=== PATIENT | female | born 1940 | race Caucasian/White ===

== ENCOUNTER 2017-10-08 07:17 | Day surgery (SDC) | payer MEDICARE, BC ==
[~2017-10-08 07:17] MED LIST: AMLO5 PO; ATOR40TA PO; Aspirin EC81 MG PO; CEFU500 PO; DILT120ERA; EZET10; LEVSOD50 PO; METO25ER; WARF5; ZOLP10 PO
[2017-11-03] MEDS ORDERED: ZOLP10 PO (11:26)
[2017-11-03] MEDS ORDERED: Jantoven4 MG PO (11:27)
[2017-11-03] MEDS ORDERED: Caltrate-600 W1 EACH PO (11:28)
== END 2017-10-08 23:12 | disposition home or self-care (01) ==
LOC: MOI MAM 07:17
PROC: 0HBT3ZX Excision of Right Breast, Percutaneous Approach, Diagnostic (ICD-10-PCS; principal; 2017-10-08)
DX: N63.0 Unspecified lump in unspecified breast (principal)
CPT/HCPCS: 19083; 77065; 88305; 88341; 88342; A4648; G0279

== ENCOUNTER 2017-11-11 10:07 | Day surgery (SDC) | payer MEDICARE, BC ==
[~2017-11-11] VITALS: Ht 162.6 cm; Wt 71.7 kg
[~2017-11-11 10:07] MED LIST changes: +Caltrate-600 W1 EACH PO; +Jantoven4 MG PO
[2017-11-11 10:58] LABS: Hematocrit 46.2 % (33.0-51.0); Hemoglobin 15.7 g/dL (11.5-16.0); Mean Corpuscular Volume 94 fL (80-100); Mean Platelet Volume 10.4 fL (9.1-12.4); Platelet Count 243 K/mm3 (150-400); RDW Coefficient Variation 12.5 % (11.7-14.2); RDW Standard Deviation 43.5 fL (35.1-46.3); Red Blood Cell Count 4.91 M/mm3 (3.80-5.20); White Blood Cell Count 8.14 K/mm3 (4.00-11.30)
[2017-11-11 11:09] LABS: Prothrombin Time Results 10.4 Sec (9.7-11.5)
[2017-11-11 11:49] LABS: Anion Gap 7 mmol/L (6-16); Blood Urea Nitrogen 10 mg/dL (8-24); Bun/Creatinine Ratio 12.5 (12.0-20.0); CO2, Blood 27 mmol/L (21-32); Calcium, Blood 9.2 mg/dL (8.5-10.1); Chloride, Blood 108 mmol/L (98-108); Glomerular Filtration Rate >60 (60-); Glucose, Blood 98 mg/dL (70-99); Potassium, Blood 4.2 mmol/L (3.5-5.5); Sodium, Blood 142 mmol/L (136-145)
[2017-11-18 15:17] LABS: Performing Lab SYMBIODX; Test Name TISSUE BLOCK
[2017-11-23 09:55] LABS: Result SEE PATHOTH RESULTS
== END 2017-11-11 14:52 | disposition home or self-care (01) ==
LOC: ORSCMMR 10:07 → NM 10:07 → ORSCMMR 10:08 → NM 14:52
PROVIDERS: Surgery
PROC: 07B50ZX Excision of Right Axillary Lymphatic, Open Approach, Diagnostic (ICD-10-PCS; principal; 2017-11-11 11:00)
PROC: 0HBT0ZZ Excision of Right Breast, Open Approach (ICD-10-PCS; principal; 2017-11-11 11:00)
DX: C50.811 Malignant neoplasm of overlapping sites of right female breast (principal); D36.0 Benign neoplasm of lymph nodes; I10 Essential (primary) hypertension; I48.91 Unspecified atrial fibrillation; N18.9 Chronic kidney disease, unspecified; I69.320 Aphasia following cerebral infarction; E03.9 Hypothyroidism, unspecified; Z79.01 Long term (current) use of anticoagulants; Z79.82 Long term (current) use of aspirin; Z87.891 Personal history of nicotine dependence; Z95.0 Presence of cardiac pacemaker; Z79.899 Other long term (current) drug therapy
CPT/HCPCS: 19281; 36415; 78195; 80048; 85027; 85610; 88307; 88342; 88360; 88363; 88374; A9520; J0690; J1100; J2405; J3010; J7120; Q9968

== ENCOUNTER 2017-11-13 17:13 | Emergency (ER) | payer MEDICARE, BC ==
[~2017-11-13] VITALS: Ht 162.6 cm; Wt 81.7 kg
[2017-11-13 17:45] LABS: BASOPHILS ABSOLUTE AUTO 0.02 K/mm3 (0.00-0.23); BASOPHILS PERCENT AUTO 0 % (0-2); EOSINOPHILS PERCENT AUTO 2 % (0-6); Hematocrit 38.6 % (33.0-51.0); Hemoglobin 13.3 g/dL (11.5-16.0); IMMATURE GRAN ABSOLUTE AUTO 0.02 K/mm3 (0.00-0.10); IMMATURE GRAN PERCENT AUTO 0 % (0-1); LYMPHOCYTES ABSOLUTE AUTO 3.07 K/mm3 (0.84-5.20); LYMPHOCYTES PERCENT AUTO 32 % (21-46); MONOCYTES ABSOLUTE AUTO 0.72 K/mm3 (0.16-1.47); MONOCYTES PERCENT AUTO 8 % (4-13); Mean Corpuscular HGB 32.3 pg (26.0-34.0); Mean Corpuscular HGB Conc 34.5 g/dL (31.5-36.5); Mean Corpuscular Volume 94 fL (80-100); Mean Platelet Volume 10.5 fL (9.1-12.4); NEUTROPHILS ABSOLUTE AUTO 5.54 K/mm3 (1.96-9.15); NEUTROPHILS PERCENT AUTO 58 % (41-73); Platelet Count 214 K/mm3 (150-400); RDW Coefficient Variation 12.6 % (11.7-14.2); RDW Standard Deviation 43.5 fL (35.1-46.3); Red Blood Cell Count 4.12 M/mm3 (3.80-5.20); White Blood Cell Count 9.57 K/mm3 (4.00-11.30)
[2017-11-13 17:58] LABS: International Normalized Ratio 1.05; Prothrombin Time Results 10.9 Sec (9.7-11.5)
[2017-11-13 18:06] LABS: Alanine Aminotransfer (ALT/SGP 19 U/L (12-78); Albumin, Blood 3.5 g/dL (3.4-5.0); Albumin/Globulin Ratio 1.2 (0.8-1.8); Alk Phos 61 U/L (50-136); Anion Gap 8 mmol/L (6-16); Aspartate Aminotrans (AST/SGOT 30 U/L (12-37); Bilirubin, Total 0.8 mg/dL (0.1-1.0); Blood Urea Nitrogen 15 mg/dL (8-24); Bun/Creatinine Ratio 18.3 (12.0-20.0); CO2, Blood 26 mmol/L (21-32); Calcium, Blood 8.1 mg/dL (8.5-10.1); Chloride, Blood 109 mmol/L (98-108); Creatinine, Blood 0.82 mg/dL (0.40-1.00); Globulin, Blood 2.8 g/dL (2.2-4.0); Glomerular Filtration Rate >60 (60-); Glucose, Blood 87 mg/dL (70-99); Potassium, Blood 3.8 mmol/L (3.5-5.5); Sodium, Blood 143 mmol/L (136-145); Total Protein, Blood 6.3 g/dL (6.4-8.2)
== END 2017-11-13 19:45 | disposition short-term general hospital (02) ==
LOC: ER 17:13
PROVIDERS: Emergency Medicine
DX: I63.9 Cerebral infarction, unspecified (principal); I48.91 Unspecified atrial fibrillation; F17.200 Nicotine dependence, unspecified, uncomplicated; Z79.01 Long term (current) use of anticoagulants; Z91.038 Other insect allergy status; Z88.0 Allergy status to penicillin; Z91.048 Other nonmedicinal substance allergy status; Z79.899 Other long term (current) drug therapy; Z79.82 Long term (current) use of aspirin; Z85.3 Personal history of malignant neoplasm of breast; Z95.0 Presence of cardiac pacemaker
CPT/HCPCS: 31500; 31720; 36415; 51702; 70450; 70496; 71045; 80053; 82947; 85025; 85610; 93005; 93010; 94002; 96374; 99291; 99292; J0330; J1265; J2997; J7060; Q9967